=== PATIENT | male | born 1970 | race Caucasian/White ===

== ENCOUNTER 2017-01-24 08:04 | Emergency (ER) | payer OTHER ==
[~2017-01-24] VITALS: Ht 177.8 cm; Wt 109.1 kg
[2017-01-24] MEDS ORDERED: AMLO5TAB66 PO (08:21)
[2017-01-24] MEDS ORDERED: HYDR25TA PO (08:21)
[2017-01-24] MEDS ORDERED: LORA10TA57 PO (08:21)
[2017-01-24] MEDS ORDERED: FLUT16H NASAL (08:21)
[2017-01-24] MEDS ORDERED: LISI2.5T2 PO (08:21)
[2017-01-24] MEDS ORDERED: ChlordiazePOXIDE HCL 25 MG CAPSULE PO ONE (10:00)
[2017-01-24] MEDS ORDERED: MAGNESIUM SULFATE 2 GM, MVI, ADULT NO.1 WITH VIT K 10 ML, THIAMINE HCL 100 MG, FOLIC AC... IV ONE ×5 (10:00)
[2017-01-24 10:06] LABS: BASOPHILS % (AUTO) 0.3 % (0.0-2.0); EOSINOPHILS % (AUTO) 0.2 % (1.0-6.0); HEMATOCRIT 48.2 % (41-53); HEMOGLOBIN 16.7 g/dL (13.5-17.5); LYMPHOCYTES # (AUTO) 1.2 K/uL (1.0-4.8); LYMPHOCYTES % (AUTO) 14.9 % (22.0-44.0); MEAN CORPUSCULAR HEMOGLOBIN 31.4 pg (26.0-34.0); MEAN CORPUSCULAR HGB CONC 34.6 G/dL (31.0-37.0); MEAN CORPUSCULAR VOLUME 91 fL (80-100); MONOCYTES # (AUTO) 0.3 K/uL (0.1-1.0); NEUTROPHILS # (AUTO) 6.5 K/uL (1.8-7.7); NEUTROPHILS % (AUTO) 80.6 % (40.0-70.0); PLATELET COUNT (AUTO) 255 K/uL (150-450); RED BLOOD CELL COUNT(AUTO) 5.32 MIL/uL (4.50-5.90); RED CELL DISTRIBUTION WIDTH 14.6 % (11.5-14.5); WHITE BLOOD COUNT (AUTO) 8.1 K/uL (4.5-11.0)
[2017-01-24 10:22] LABS: ANION GAP 12 mmol/L (8-16); CALCIUM, TOTAL 8.7 mg/dL (8.8-10.5); CARBON DIOXIDE 28 mmol/L (22-29); CHLORIDE 101 mmol/L (98-107); CREATININE 0.81 mg/dL (0.60-1.30); GLOMERULAR FILTR. RATE CALC > 60 mL/min (>60); POTASSIUM 3.9 mmol/L (3.5-5.1); SODIUM SERUM 141 mmol/L (136-145); UREA NITROGEN, BLOOD 7 mg/dL (7-18)
[2017-01-24 10:28] LABS: ALANINE AMINOTRANSFERASE 42 U/L (12-78); ALBUMIN 4.1 g/dL (3.4-5.0); ASPARTATE AMINOTRANSFERASE 35 U/L (15-37); BILIRUBIN,TOTAL 0.7 mg/dL (0.1-1.0); TOTAL PROTEIN, SERUM 7.8 g/dL (6.4-8.2)
[2017-01-24 11:46] VITALS: BP 159/107
== END 2017-01-24 12:24 | disposition home or self-care (01) ==
LOC: EMS 08:09
DX: F10.20 Alcohol dependence, uncomplicated (principal); I10 Essential (primary) hypertension; Z02.89 Encounter for other administrative examinations; Y90.4 Blood alcohol level of 80-99 mg/100 ml
CPT/HCPCS: 36415; 80053; 80307; 85025; 96365; 96366; 99285; G0480; J3411; J3475; J3490 ×2; J7030; 99284

== ENCOUNTER 2018-04-13 09:01 | Emergency (ER) | payer OTHER ==
[~2018-04-13] VITALS: Ht 177.8 cm; Wt 100.0 kg
[~2018-04-13 09:01] MED LIST: AMLO5TAB66 PO; FLUT16H NASAL; HYDR25TA PO; LISI2.5T2 PO; LORA10TA57 PO
[2018-04-13 14:03] VITALS: BP 123/92
== END 2018-04-13 14:02 | disposition home or self-care (01) ==
LOC: EMS 09:02
DX: F10.20 Alcohol dependence, uncomplicated (principal); I10 Essential (primary) hypertension; Z79.899 Other long term (current) drug therapy; Y90.9 Presence of alcohol in blood, level not specified

== ENCOUNTER 2018-11-25 10:18 | Emergency (ER) | payer OTHER ==
[~2018-11-25] VITALS: Ht 177.8 cm; Wt 100.0 kg
[2018-11-25] MEDS ORDERED: ChlordiazePOXIDE HCL 25 MG CAPSULE PO ONE (11:45)
[2018-11-25 12:17] LABS: BASOPHILS % (AUTO) 0.5 % (0.0-2.0); EOSINOPHILS % (AUTO) 0.1 % (1.0-6.0); HEMATOCRIT 43.1 % (41-53); HEMOGLOBIN 14.6 g/dL (13.5-17.5); LYMPHOCYTES # (AUTO) 0.9 K/uL (1.0-4.8); LYMPHOCYTES % (AUTO) 13.3 % (22.0-44.0); MEAN CORPUSCULAR HEMOGLOBIN 30.8 pg (26.0-34.0); MEAN CORPUSCULAR HGB CONC 33.9 G/dL (31.0-37.0); MEAN CORPUSCULAR VOLUME 91 fL (80-100); MONOCYTES # (AUTO) 0.4 K/uL (0.1-1.0); MONOCYTES % (AUTO) 6.5 % (2.0-9.0); NEUTROPHILS # (AUTO) 5.4 K/uL (1.8-7.7); NEUTROPHILS % (AUTO) 79.6 % (40.0-70.0); PLATELET COUNT (AUTO) 234 K/uL (150-450); RED BLOOD CELL COUNT(AUTO) 4.75 MIL/uL (4.50-5.90); RED CELL DISTRIBUTION WIDTH 14.1 % (11.5-14.5)
[2018-11-25 12:51] LABS: ANION GAP 15 mmol/L (8-16); CALCIUM, TOTAL 8.7 mg/dL (8.8-10.5); CARBON DIOXIDE 27 mmol/L (22-29); CHLORIDE 100 mmol/L (98-107); CREATININE 0.77 mg/dL (0.60-1.30); GLOMERULAR FILTR. RATE CALC > 60 mL/min (>60); GLUCOSE,RANDOM 105 mg/dL (70-110); POTASSIUM 3.5 mmol/L (3.5-5.1); SODIUM SERUM 142 mmol/L (136-145); UREA NITROGEN, BLOOD 7 mg/dL (7-18)
[2018-11-25 12:56] LABS: ALANINE AMINOTRANSFERASE 43 U/L (12-78); ALBUMIN 4.2 g/dL (3.4-5.0); ALKALINE PHOSPHATASE 97 U/L (46-116); ASPARTATE AMINOTRANSFERASE 44 U/L (15-37); BILIRUBIN,TOTAL 0.8 mg/dL (0.1-1.0); TOTAL PROTEIN, SERUM 7.2 g/dL (6.4-8.2)
[2018-11-25 13:32] VITALS: BP 142/82
== END 2018-11-25 13:36 | disposition home or self-care (01) ==
LOC: EMS 10:19
DX: S00.81XA Abrasion of other part of head, initial encounter (principal); S00.31XA Abrasion of nose, initial encounter; F10.229 Alcohol dependence with intoxication, unspecified; I10 Essential (primary) hypertension; Z79.899 Other long term (current) drug therapy; Y90.5 Blood alcohol level of 100-119 mg/100 ml; W18.39XA Other fall on same level, initial encounter; Y93.89 Activity, other specified; Y92.89 Other specified places as the place of occurrence of the external cause; Y99.8 Other external cause status
CPT/HCPCS: 36415; 80053; 85025; 99283; G0480

== ENCOUNTER 2019-02-05 15:23 | Emergency (ER) | payer OTHER ==
[~2019-02-05] VITALS: Ht 175.3 cm; Wt 105.5 kg
[2019-02-05] MEDS ORDERED: ATOR40TA28 PO (15:35)
[2019-02-05 17:07] LABS: BASOPHILS % (AUTO) 0.6 % (0.0-2.0); EOSINOPHILS % (AUTO) 0.7 % (1.0-6.0); HEMOGLOBIN 15.7 g/dL (13.5-17.5); LYMPHOCYTES # (AUTO) 1.6 K/uL (1.0-4.8); MEAN CORPUSCULAR HEMOGLOBIN 30.5 pg (26.0-34.0); MEAN CORPUSCULAR HGB CONC 34.1 G/dL (31.0-37.0); MEAN CORPUSCULAR VOLUME 89 fL (80-100); MONOCYTES # (AUTO) 0.4 K/uL (0.1-1.0); MONOCYTES % (AUTO) 7.5 % (2.0-9.0); NEUTROPHILS # (AUTO) 3.2 K/uL (1.8-7.7); NEUTROPHILS % (AUTO) 61.2 % (40.0-70.0); PLATELET COUNT (AUTO) 194 K/uL (150-450); RED BLOOD CELL COUNT(AUTO) 5.14 MIL/uL (4.50-5.90); RED CELL DISTRIBUTION WIDTH 13.9 % (11.5-14.5)
[2019-02-05 17:21] LABS: PROTHROMBIN TIME 10.4 SEC (9.4-11.6)
[2019-02-05 17:44] LABS: ALANINE AMINOTRANSFERASE 58 U/L (12-78); ALBUMIN 3.9 g/dL (3.4-5.0); ALKALINE PHOSPHATASE 87 U/L (46-116); ANION GAP 13 mmol/L (8-16); ASPARTATE AMINOTRANSFERASE 63 U/L (15-37); CALCIUM, TOTAL 8.7 mg/dL (8.8-10.5); CARBON DIOXIDE 30 mmol/L (22-29); CHLORIDE 99 mmol/L (98-107); CREATININE 1.02 mg/dL (0.60-1.30); GLOMERULAR FILTR. RATE CALC > 60 mL/min (>60); GLUCOSE,RANDOM 153 mg/dL (70-110); SODIUM SERUM 142 mmol/L (136-145); TOTAL PROTEIN, SERUM 7.4 g/dL (6.4-8.2); UREA NITROGEN, BLOOD 7 mg/dL (7-18)
[2019-02-05] MEDS ORDERED: POTASSIUM CHLORIDE 10% 40 MEQ/30 ML LIQUID UDCUP PO ONE (18:00)
[2019-02-05] MEDS ORDERED: LORA10TA7 PO (18:01)
[2019-02-05] MEDS ORDERED: LISI-660 PO (18:01)
[2019-02-05 18:39] LABS: AMPHET/METH SCREEN,URINE POSITIVE (NEGATIVE); BARBITURATE SCREEN, URINE NEGATIVE (NEGATIVE); BENZODIAZEPINES SCREEN,URINE NEGATIVE (NEGATIVE); CANNABINOID SCREEN,URINE POSITIVE (NEGATIVE); COCAINE SCREEN,URINE NEGATIVE (NEGATIVE); METHADONE SCREEN, URINE NEGATIVE (NEGATIVE); OPIATE SCREEN,URINE NEGATIVE (NEGATIVE)
[2019-02-05 18:41] LABS: PHENCYCLIDINE SCREEN,URINE NEGATIVE (NEGATIVE)
[2019-02-05 19:04] VITALS: BP 125/69
== END 2019-02-05 19:12 | disposition home or self-care (01) ==
LOC: EMS 15:23
DX: K70.30 Alcoholic cirrhosis of liver without ascites (principal); F10.129 Alcohol abuse with intoxication, unspecified; E87.6 Hypokalemia; F17.210 Nicotine dependence, cigarettes, uncomplicated; F12.90 Cannabis use, unspecified, uncomplicated; E78.00 Pure hypercholesterolemia, unspecified; I10 Essential (primary) hypertension; Y90.8 Blood alcohol level of 240 mg/100 ml or more; Z79.899 Other long term (current) drug therapy
CPT/HCPCS: 36415; 80053; 80307; 85025; 85610; 85730; 93005; 99284; 99406; G0480

== ENCOUNTER 2019-02-14 23:05 | Emergency (ER) | payer OTHER ==
[~2019-02-14] VITALS: Ht 177.8 cm; Wt 100.9 kg
[~2019-02-14 23:05] MED LIST changes: +ATOR40TA28 PO; +LISI-660 PO; -LISI2.5T2 PO; -LORA10TA57 PO; +LORA10TA7 PO
[2019-02-14 23:19] VITALS: BP 144/105
[2019-02-15] MEDS ORDERED: NAPROXEN 250 MG TABLET PO ONE (00:45)
== END 2019-02-15 00:49 | disposition home or self-care (01) ==
LOC: EMS 23:07
DX: K12.1 Other forms of stomatitis (principal); M25.569 Pain in unspecified knee; I10 Essential (primary) hypertension; E78.00 Pure hypercholesterolemia, unspecified; F17.210 Nicotine dependence, cigarettes, uncomplicated; F12.90 Cannabis use, unspecified, uncomplicated; Z79.899 Other long term (current) drug therapy
CPT/HCPCS: 99406

== ENCOUNTER 2022-11-23 00:34 | Emergency (ER) | payer MEDICAID, OTHER ==
[~2022-11-23] VITALS: Ht 172.7 cm; Wt 109.0 kg
[~2022-11-23 00:34] MED LIST changes: -FLUT16H NASAL; +FLUT16SP NASAL; -LISI-660 PO; +LISI-892 PO
[2022-11-23] MEDS ORDERED: MAGNESIUM SULFATE 2 GM, MVI, ADULT NO.1 WITH VIT K 10 ML, THIAMINE 100 MG, FOLIC ACID 1... IV ONE ×5 (00:45)
[2022-11-23] MEDS ORDERED: POTA-206 PO (00:46)
[2022-11-23] MEDS ORDERED: CHLO25CA5 PO (00:46)
[2022-11-23 01:00] VITALS: BP 119/71; PULSE 74; RESP 20; TEMP 98.3
[2022-11-23 01:16] LABS: BASOPHILS % (AUTO) 1.2 % (0.0-2.0); EOSINOPHILS % (AUTO) 1.9 % (1.0-6.0); HEMATOCRIT 44.8 % (41-53); HEMOGLOBIN 15.2 g/dL (13.5-17.5); LYMPHOCYTES # (AUTO) 1.7 K/uL (1.0-4.8); LYMPHOCYTES % (AUTO) 35.4 % (22.0-44.0); MEAN CORPUSCULAR HEMOGLOBIN 31.3 pg (26.0-34.0); MEAN CORPUSCULAR HGB CONC 33.9 G/dL (31.0-37.0); MEAN CORPUSCULAR VOLUME 92 fL (80-100); MONOCYTES # (AUTO) 0.4 K/uL (0.1-1.0); MONOCYTES % (AUTO) 8.1 % (2.0-9.0); NEUTROPHILS # (AUTO) 2.6 K/uL (1.8-7.7); NEUTROPHILS % (AUTO) 53.4 % (40.0-70.0); PLATELET COUNT (AUTO) 221 K/uL (150-450); RED BLOOD CELL COUNT(AUTO) 4.85 MIL/uL (4.50-5.90); RED CELL DISTRIBUTION WIDTH 16.4 % (11.5-14.5)
[2022-11-23 01:27] LABS: ALANINE AMINOTRANSFERASE 52 U/L (12-78); ALBUMIN 3.7 g/dL (3.4-5.0); ALKALINE PHOSPHATASE 122 U/L (46-116); ANION GAP 12 mmol/L (8-16); ASPARTATE AMINOTRANSFERASE 46 U/L (15-37); BILIRUBIN,TOTAL 0.3 mg/dL (0.1-1.0); CALCIUM, TOTAL 8.2 mg/dL (8.8-10.5); CARBON DIOXIDE 29 mmol/L (22-29); CHLORIDE 102 mmol/L (98-107); CREATININE 0.91 mg/dL (0.60-1.30); GLOMERULAR FILTR. RATE CALC > 60 mL/min (>60); GLUCOSE,RANDOM 130 mg/dL (70-110); SODIUM SERUM 143 mmol/L (136-145); TOTAL PROTEIN, SERUM 7.1 g/dL (6.4-8.2)
[2022-11-23 01:34] LABS: POTASSIUM 2.8 mmol/L (3.5-5.1)
[2022-11-23] MEDS: POTASSIUM CHL 10 MEQ/WATER 50 ML IV SCH ×2 (02:17→03:53)
[2022-11-23] MEDS ORDERED: ChlordiazePOXIDE HCL 25 MG CAPSULE PO ONE (04:00)
[2022-11-23] MEDS ORDERED: LIB25 PO (05:43)
== END 2022-11-23 07:01 | disposition home or self-care (01) ==
LOC: EMS 00:34
DX: F10.229 Alcohol dependence with intoxication, unspecified (principal); E78.00 Pure hypercholesterolemia, unspecified; I10 Essential (primary) hypertension; F17.210 Nicotine dependence, cigarettes, uncomplicated; F12.90 Cannabis use, unspecified, uncomplicated; Z96.659 Presence of unspecified artificial knee joint
CPT/HCPCS: 80053; 84484; 85025; 36415; 99284; 93005; 96361; 96365; G0480; J3490 ×2; J3411; J3475; J7030

== ENCOUNTER 2024-02-03 23:35 | Emergency (ER) | payer MEDICAID ==
[~2024-02-03] VITALS: Ht 177.8 cm; Wt 111.4 kg
[~2024-02-03 23:35] MED LIST changes: +CHLO25CA5 PO; +CHLO25CA6 PO; -LORA10TA7 PO; +POTA-206 PO
[2024-02-03 23:48] VITALS: TEMP 98.4
[2024-02-04 12:25] VITALS: BP 131/77; PULSE 84; RESP 16; O2SAT 99
== END 2024-02-04 12:25 | disposition home or self-care (01) ==
LOC: EMS 23:35
DX: F10.129 Alcohol abuse with intoxication, unspecified (principal); I10 Essential (primary) hypertension; F17.210 Nicotine dependence, cigarettes, uncomplicated; F12.90 Cannabis use, unspecified, uncomplicated; E78.00 Pure hypercholesterolemia, unspecified; Z79.899 Other long term (current) drug therapy; Y90.6 Blood alcohol level of 120-199 mg/100 ml
CPT/HCPCS: 99283; 36415; G0480

== ENCOUNTER 2024-09-14 14:40 | Emergency (ER) | payer MEDICAID ==
[~2024-09-14] VITALS: Ht 172.7 cm; Wt 100.0 kg
[2024-09-14 14:50] VITALS: BP 122/78; PULSE 96; RESP 18; TEMP 97.7; O2SAT 97
== END 2024-09-14 15:17 | disposition left against medical advice (07) ==
LOC: EMS 14:40
DX: F10.129 Alcohol abuse with intoxication, unspecified (principal); Z53.21 Procedure and treatment not carried out due to patient leaving prior to being seen by health care provider; Y90.9 Presence of alcohol in blood, level not specified

== ENCOUNTER 2024-09-14 22:11 | Emergency (ER) | payer MEDICAID ==
[~2024-09-14] VITALS: Ht 172.7 cm; Wt 109.1 kg
[2024-09-14 23:11] VITALS: TEMP 97.5
[2024-09-15 04:12] VITALS: BP 132/78; PULSE 76; RESP 16; O2SAT 98
== END 2024-09-15 05:22 | disposition home or self-care (01) ==
LOC: EMS 22:12
DX: F10.129 Alcohol abuse with intoxication, unspecified (principal); E78.00 Pure hypercholesterolemia, unspecified; I10 Essential (primary) hypertension; F12.90 Cannabis use, unspecified, uncomplicated; F17.210 Nicotine dependence, cigarettes, uncomplicated; Z98.890 Other specified postprocedural states; Z79.899 Other long term (current) drug therapy; Y90.9 Presence of alcohol in blood, level not specified
CPT/HCPCS: 99283; Z7502

== ENCOUNTER 2025-01-11 15:45 | Emergency (ER) | payer MEDICAID, OTHER ==
[~2025-01-11] VITALS: Ht 172.7 cm; Wt 100.0 kg
[2025-01-11 15:54] VITALS: TEMP 98.9
[2025-01-11] MEDS ORDERED: LORA10TA7 PO (16:33)
[2025-01-11] MEDS ORDERED: FLUT16H NASAL (16:33)
[2025-01-11] MEDS ORDERED: LISI10TA24 PO (16:33)
[2025-01-11 16:35] LABS: PLATELET COUNT (AUTO) 182 K/uL (150-450); RED BLOOD CELL COUNT(AUTO) 4.76 MIL/uL (4.50-5.90); RED CELL DISTRIBUTION WIDTH 14.0 % (11.5-14.5); WHITE BLOOD COUNT (AUTO) 7.2 K/uL (4.5-11.0)
[2025-01-11 16:36] LABS: CALCIUM, TOTAL 8.2 mg/dL (8.8-10.5); CREATININE 0.68 mg/dL (0.60-1.30); GLOMERULAR FILTR. RATE CALC > 60 mL/min (>60); GLUCOSE,RANDOM 104 mg/dL (70-110); SODIUM SERUM 137 mmol/L (136-145); UREA NITROGEN, BLOOD 5 mg/dL (7-18)
[2025-01-11] MEDS: ONDANSETRON HCL 4 MG/2 ML VIAL IVP ONE (16:36)
[2025-01-11] MEDS: SODIUM CHLORIDE 0.9% 3,000 ML IV ONE (16:36)
[2025-01-11] MEDS: THIAMINE 100 MG/ML 2 ML VIAL IVP ONE (16:59)
[2025-01-11] MEDS: SODIUM CHLORIDE 0.9% 1,000 ML IV ONE (18:37)
[2025-01-11 19:48] VITALS: BP 114/64; PULSE 82; RESP 18; O2SAT 98
[2025-01-11] MEDS: POTASSIUM CHLORIDE 20 MEQ ER TABLET PO ONE (20:39)
== END 2025-01-11 21:30 | disposition home or self-care (01) ==
LOC: EMS 15:45
DX: F10.229 Alcohol dependence with intoxication, unspecified (principal); E78.00 Pure hypercholesterolemia, unspecified; F12.90 Cannabis use, unspecified, uncomplicated; I10 Essential (primary) hypertension; F17.210 Nicotine dependence, cigarettes, uncomplicated; Z79.899 Other long term (current) drug therapy; Z96.659 Presence of unspecified artificial knee joint; Y90.8 Blood alcohol level of 240 mg/100 ml or more
CPT/HCPCS: 99284; 96374; 96361; 71045; 96375; 80048; 85025; 36415; G0480; J2405; J3411; J7030

== ENCOUNTER 2025-01-26 22:11 | Emergency (ER) | payer OTHER ==
[~2025-01-26] VITALS: Ht 165.1 cm; Wt 88.0 kg
[~2025-01-26 22:11] MED LIST changes: -AMLO5TAB66 PO; -ATOR40TA28 PO; -CHLO25CA5 PO; -CHLO25CA6 PO; +FLUT16H NASAL; -FLUT16SP NASAL; -HYDR25TA PO; -LISI-892 PO; +LISI10TA24 PO; +LORA10TA7 PO; -POTA-206 PO
[2025-01-26 22:17] VITALS: TEMP 97.9
[2025-01-26 23:15] LABS: PLATELET COUNT (AUTO) 254 K/uL (150-450); RED BLOOD CELL COUNT(AUTO) 5.28 MIL/uL (4.50-5.90); RED CELL DISTRIBUTION WIDTH 14.8 % (11.5-14.5); WHITE BLOOD COUNT (AUTO) 6.9 K/uL (4.5-11.0)
[2025-01-26 23:24] LABS: CALCIUM, TOTAL 8.6 mg/dL (8.8-10.5); CREATININE 0.65 mg/dL (0.60-1.30); GLOMERULAR FILTR. RATE CALC > 60 mL/min (>60); GLUCOSE,RANDOM 110 mg/dL (70-110); SODIUM SERUM 140 mmol/L (136-145); UREA NITROGEN, BLOOD 6 mg/dL (7-18)
[2025-01-26 23:30] LABS: ASPARTATE AMINOTRANSFERASE 48.0 U/L (15-37); TOTAL PROTEIN, SERUM 7.3 g/dL (6.4-8.2)
[2025-01-26 23:46] LABS: ALCOHOL, BLOOD (SERUM) 439.0 mg/dL (0-10)
[2025-01-27] MEDS: MAGNESIUM SULFATE 2 GM, MVI, ADULT NO.1 WITH VIT K 10 ML, THIAMINE 100 MG, FOLIC ACID 1... IV ONE (00:33)
[2025-01-27] MEDS: POTASSIUM CHLORIDE 20 MEQ ER TABLET PO ONE (00:33)
[2025-01-27] MEDS ORDERED: CHLO10CA7 PO (06:38)
[2025-01-27 07:58] VITALS: BP 118/73; PULSE 74; RESP 18; O2SAT 96
[2025-01-27] MEDS: ONDANSETRON 4 MG TABLET PO ONE (07:58)
== END 2025-01-27 08:01 | disposition home or self-care (01) ==
LOC: EMS 22:21
DX: F10.229 Alcohol dependence with intoxication, unspecified (principal); E78.00 Pure hypercholesterolemia, unspecified; F12.90 Cannabis use, unspecified, uncomplicated; I10 Essential (primary) hypertension; F17.210 Nicotine dependence, cigarettes, uncomplicated; Z96.659 Presence of unspecified artificial knee joint; Z79.899 Other long term (current) drug therapy; Y90.8 Blood alcohol level of 240 mg/100 ml or more
CPT/HCPCS: 99285; 80048; 80076; 85025; 36415; 96365; 96366; G0480; J3490 ×2; Q0162; J3411; J3475; J7030

== ENCOUNTER 2025-02-06 01:17 | Emergency (ER) | payer OTHER ==
[~2025-02-06] VITALS: Ht 165.1 cm; Wt 88.0 kg
[~2025-02-06 01:17] MED LIST changes: +CHLO10CA7 PO
[2025-02-06 01:24] VITALS: TEMP 97.9
[2025-02-06 01:44] LABS: RED BLOOD CELL COUNT(AUTO) 4.66 MIL/uL (4.50-5.90); RED CELL DISTRIBUTION WIDTH 16.2 % (11.5-14.5); WHITE BLOOD COUNT (AUTO) 4.3 K/uL (4.5-11.0)
[2025-02-06 01:49] LABS: PLATELET COUNT (AUTO) 68 K/uL (150-450)
[2025-02-06 01:52] LABS: CALCIUM, TOTAL 8.2 mg/dL (8.8-10.5); CREATININE 0.65 mg/dL (0.60-1.30); GLOMERULAR FILTR. RATE CALC > 60 mL/min (>60); GLUCOSE,RANDOM 138 mg/dL (70-110); SODIUM SERUM 140 mmol/L (136-145); UREA NITROGEN, BLOOD 11 mg/dL (7-18)
[2025-02-06] MEDS: MAGNESIUM SULFATE 2 GM, MVI, ADULT NO.1 WITH VIT K 10 ML, THIAMINE 100 MG, FOLIC ACID 1... IV ONE (03:38)
[2025-02-06] MEDS: POTASSIUM CHLORIDE 10% 40 MEQ/30 ML LIQUID UDCUP PO ONE (03:38)
[2025-02-06 07:15] VITALS: BP 142/90; PULSE 80; RESP 16; O2SAT 98
== END 2025-02-06 11:02 | disposition home or self-care (01) ==
LOC: EMS 01:17
DX: F10.229 Alcohol dependence with intoxication, unspecified (principal); E78.00 Pure hypercholesterolemia, unspecified; I10 Essential (primary) hypertension; F12.90 Cannabis use, unspecified, uncomplicated; Z96.659 Presence of unspecified artificial knee joint; Z79.899 Other long term (current) drug therapy; Y90.9 Presence of alcohol in blood, level not specified
CPT/HCPCS: 99284; 96365; 96366; 80048; 85025; 36415; G0480; J3490 ×2; J3411; J3475; J7030

== ENCOUNTER 2025-02-06 14:14 | Emergency (ER) | payer OTHER ==
[~2025-02-06] VITALS: Ht 172.7 cm; Wt 100.0 kg
[2025-02-06 14:25] VITALS: TEMP 98.2
[2025-02-06 14:45] VITALS: BP 112/76; PULSE 85; RESP 18; O2SAT 94
[2025-02-06 14:48] LABS: PLATELET COUNT (AUTO) 75 K/uL (150-450); RED BLOOD CELL COUNT(AUTO) 4.79 MIL/uL (4.50-5.90); RED CELL DISTRIBUTION WIDTH 15.6 % (11.5-14.5); WHITE BLOOD COUNT (AUTO) 4.6 K/uL (4.5-11.0)
[2025-02-06 15:00] LABS: CALCIUM, TOTAL 7.9 mg/dL (8.8-10.5); CREATININE 0.78 mg/dL (0.60-1.30); GLOMERULAR FILTR. RATE CALC > 60 mL/min (>60); GLUCOSE,RANDOM 109 mg/dL (70-110); SODIUM SERUM 142 mmol/L (136-145); UREA NITROGEN, BLOOD 8 mg/dL (7-18)
== END 2025-02-06 17:38 | disposition left against medical advice (07) ==
LOC: EMS 14:14
DX: F10.229 Alcohol dependence with intoxication, unspecified (principal); E78.00 Pure hypercholesterolemia, unspecified; F12.90 Cannabis use, unspecified, uncomplicated; I10 Essential (primary) hypertension; F17.210 Nicotine dependence, cigarettes, uncomplicated; Z96.659 Presence of unspecified artificial knee joint; Z79.899 Other long term (current) drug therapy; Y90.8 Blood alcohol level of 240 mg/100 ml or more
CPT/HCPCS: 99283; 80048; 85025; 36415; G0480

== ENCOUNTER 2025-02-06 23:27 | Emergency (ER) | payer OTHER ==
[~2025-02-06] VITALS: Ht 165.1 cm; Wt 88.0 kg
[2025-02-06 23:30] VITALS: TEMP 98.1
[2025-02-07 00:47] LABS: RED BLOOD CELL COUNT(AUTO) 4.91 MIL/uL (4.50-5.90); RED CELL DISTRIBUTION WIDTH 15.9 % (11.5-14.5); WHITE BLOOD COUNT (AUTO) 3.8 K/uL (4.5-11.0)
[2025-02-07 00:53] LABS: PLATELET COUNT (AUTO) 67 K/uL (150-450)
[2025-02-07 00:56] LABS: CALCIUM, TOTAL 8.1 mg/dL (8.8-10.5); CREATININE 0.77 mg/dL (0.60-1.30); GLOMERULAR FILTR. RATE CALC > 60 mL/min (>60); GLUCOSE,RANDOM 109 mg/dL (70-110); SODIUM SERUM 146 mmol/L (136-145); UREA NITROGEN, BLOOD 7 mg/dL (7-18)
[2025-02-07 01:02] LABS: ASPARTATE AMINOTRANSFERASE 79.0 U/L (15-37); TOTAL PROTEIN, SERUM 7.5 g/dL (6.4-8.2)
[2025-02-07 01:08] LABS: ALCOHOL, BLOOD (SERUM) 431.0 mg/dL (0-10)
[2025-02-07 01:18] LABS: APPEARANCE,URINE CLEAR (CLEAR); GLUCOSE, URINE (UA) NEGATIVE (NEGATIVE); LEUKOCYTE ESTERASE ,URINE NEGATIVE (NEGATIVE); NITRATE,URINE NEGATIVE (NEGATIVE); OCCULT BLOOD,URINE NEGATIVE (NEGATIVE); PH,URINE DRUG SCREEN 6.0 (5.0-8.0); SPECIFIC GRAVITIY, URINE 1.008 (1.003-1.030)
[2025-02-07 01:23] LABS: AMPHET/METH SCREEN,URINE NEGATIVE (NEGATIVE); BARBITURATE SCREEN, URINE NEGATIVE (NEGATIVE); CANNABINOID SCREEN,URINE POSITIVE (NEGATIVE); COCAINE SCREEN,URINE NEGATIVE (NEGATIVE); METHADONE SCREEN, URINE NEGATIVE (NEGATIVE)
[2025-02-07 01:32] LABS: ALCOHOL, URINE DRUG SCREEN POSITIVE (NEGATIVE)
[2025-02-07] MEDS: POTASSIUM CHLORIDE 10% 40 MEQ/30 ML LIQUID UDCUP PO ONE (02:19)
[2025-02-07 02:23] VITALS: BP 129/64; PULSE 79; RESP 14; O2SAT 98
== END 2025-02-07 05:11 | disposition home or self-care (01) ==
LOC: EMS 23:50
DX: F10.229 Alcohol dependence with intoxication, unspecified (principal); E78.00 Pure hypercholesterolemia, unspecified; I10 Essential (primary) hypertension; F12.90 Cannabis use, unspecified, uncomplicated; Z79.899 Other long term (current) drug therapy; Z96.659 Presence of unspecified artificial knee joint; Y90.9 Presence of alcohol in blood, level not specified
CPT/HCPCS: 99283; 80048; 80076; 81003; 85025; 36415; 80307; G0480

== ENCOUNTER 2025-02-14 17:53 | Emergency (ER) | payer OTHER ==
[~2025-02-14] VITALS: Ht 162.6 cm; Wt 72.7 kg
[2025-02-14 18:43] VITALS: BP 136/94; PULSE 88; RESP 18; TEMP 97.9; O2SAT 99
== END 2025-02-14 22:25 | disposition left against medical advice (07) ==
LOC: EMS 17:53
DX: F10.129 Alcohol abuse with intoxication, unspecified (principal)
CPT/HCPCS: 99281; Z7502

== ENCOUNTER 2025-03-15 22:12 | Emergency (ER) | payer OTHER ==
[~2025-03-15] VITALS: Ht 162.6 cm; Wt 72.3 kg
[2025-03-15 22:38] VITALS: TEMP 98
[2025-03-15 23:07] LABS: PLATELET COUNT (AUTO) 301 K/uL (150-450); RED BLOOD CELL COUNT(AUTO) 4.63 MIL/uL (4.50-5.90); RED CELL DISTRIBUTION WIDTH 16.1 % (11.5-14.5); WHITE BLOOD COUNT (AUTO) 6.9 K/uL (4.5-11.0)
[2025-03-15 23:18] LABS: CALCIUM, TOTAL 8.3 mg/dL (8.8-10.5); CREATININE 0.60 mg/dL (0.60-1.30); GLOMERULAR FILTR. RATE CALC > 60 mL/min (>60); GLUCOSE,RANDOM 104 mg/dL (70-110); SODIUM SERUM 145 mmol/L (136-145); UREA NITROGEN, BLOOD 8 mg/dL (7-18)
[2025-03-15 23:47] LABS: ASPARTATE AMINOTRANSFERASE 36.0 U/L (15-37); TOTAL PROTEIN, SERUM 6.9 g/dL (6.4-8.2)
[2025-03-16 01:38] VITALS: BP 131/86; PULSE 65; RESP 18; O2SAT 96
[2025-03-16] MEDS: POTASSIUM CHLORIDE 20 MEQ ER TABLET PO ONE (03:51)
== END 2025-03-16 05:56 | disposition home or self-care (01) ==
LOC: EMS 22:12
DX: F10.129 Alcohol abuse with intoxication, unspecified (principal); E87.6 Hypokalemia; E78.00 Pure hypercholesterolemia, unspecified; F12.90 Cannabis use, unspecified, uncomplicated; I10 Essential (primary) hypertension; Z79.899 Other long term (current) drug therapy; Y90.9 Presence of alcohol in blood, level not specified
CPT/HCPCS: 80048; 80076; 85025; 99283